=== PATIENT | male | born 1940 | race Caucasian/White ===

== ENCOUNTER → 2017-04-02 | Outpatient (CLI) | payer OTHER ==
[~2017-04-02] MED LIST: BAYER ASPIRIN325 M1 PO; ELIQUIS5 MG PO; GLUCOTROL PO; METOPROLOL TAR25 MG PO; NEXIUM PO; VALSARTAN-HCTZ1 EAC4 PO
--- NOTE | ~2017-04-02 | US24 ---
[facility] A Service of [facility] RADIOLOGY TEXT RESULTS PATIENT: KRISTIN DOMÍNGUEZ LOCATION: [facility] : 42 UNIT #: [id number] AGE: [address]: Aguilar Qurales MD SEX: M ORDER DR: [id number] [facility] [address] [place], [place] [address] [id number] O MR#: [id number] Acc #: [id number] NAME: KRISTIN DOMÍNGUEZ. : 1940 SEX: M STUDY DATE/TIME: 04/02/2017 8:51 UNIT: [facility] ROOM: STUDY DESCRIPTION: US Breast Unilateral Attending Physician: Aguilar Quarles M.D. Ordering Physician: Aguilar Quarles M.D. Primary Care Physician: Aguilar Quarles M.D. MEDICAL IMAGING REPORT This report is preliminary unless electronic signature is present EXAM Diagnostic right breast ultrasound 04/02/2017 HISTORY 76-year-old male with complaints of palpable abnormality and soreness in the right breast around the nipple for about 1 month. COMPARISON Bilateral diagnostic mammogram 04/02/2017. FINDINGS Targeted sonographic imaging was obtained of the right breast. Please refer to the diagnostic mammogram report from this same date for full description of mammographic and sonographic findings and recommendations. IMPRESSION BIRADS 2. Benign findings. Please refer to the diagnostic mammogram report from the same date for full description of mammographic and sonographic findings and recommendations. BIRADS: 2 Benign finding Dictated by... Patt Barber M.D. THIS IS AN ELECTRONICALLY VERIFIED REPORT Patt Barber M.D. at 04/05/2017 7:37 AM SUMAN/lazaro TD: 04/02/2017 10:29 JOB #: [id number] [facility] A Service [facility] RADIOLOGY TEXT RESULTS PATIENT: KRISTIN DOMÍNGUEZ LOCATION: [facility] : 42 UNIT #: [id number] AGE: [address]: Aguilar Quarles MD SEX: M ORDER DR: MEDICAL IMAGING REPORT Page 1 of 1 COPY
--- NOTE | ~2017-04-02 | MY26 ---
[facility] A Service of [facility] RADIOLOGY TEXT RESULTS PATIENT: KRISTIN DOMÍNGUEZ LOCATION: [facility] : 42 UNIT #: [id number] AGE: [address]: Aguilar Quarles MD SEX: M ORDER DR: [id number] [facility] [address] [place], [place] [address] [id number] O MR#: [id number] Acc #: [id number] NAME: KRISTIN DOMÍNGUEZ. : 1940 SEX: M STUDY DATE/TIME: 04/02/2017 8:26 UNIT: [facility] ROOM: STUDY DESCRIPTION: [facility] DIAGNOSTIC W/ CAD BILAT Attending Physician: Aguilar Quarles M.D. Ordering Physician: Aguilar Quarles M.D. Primary Care Physician: Aguilar Quarles M.D. MEDICAL IMAGING REPORT This report is preliminary unless electronic signature is present EXAM Bilateral digital diagnostic mammogram with CAD, 04/02/2017 HISTORY 76-year-old male with right breast palpable abnormality and soreness around the nipple for 1 month. COMPARISON None FINDINGS CC and MLO views were obtained of the right breast utilizing digital technique and reviewed with an FDA-approved CAD device. Additional CC view was obtained of the left breast for comparison purposes. The left breast is fatty replaced. The right breast demonstrates heterogeneously dense fibroglandular tissue in the anterior two-thirds of the subareolar region. No definite nodule, architectural distortion or clustered microcalcification is seen. No abnormal skin thickening or nipple retraction is identified. Targeted sonographic imaging was obtained of the right breast in the subareolar region. There is heterogeneous hypoechoic soft tissue with a somewhat flame-shaped or dendritic pattern lying just subjacent to the nipple at the patient's site of tenderness and palpable complaint. The mammographic and sonographic appearance conforms to a benign gynecomastia. No well-defined mass lesion is evident. IMPRESSION Right breast mammographic and sonographic features conform to the appearance of benign male gynecomastia. Any further management should be based upon clinical assessment. Findings and recommendations were discussed with the patient today in the radiology department. [facility] A Service of [facility] RADIOLOGY TEXT RESULTS PATIENT: KRISTIN DOMÍNGUEZ LOCATION: [facility] : 42 UNIT #: [id number] AGE: [address]: Aguilar Quarles MD SEX: M ORDER DR: Patients over the age of 40 are entered into a reminder system with target due date for the next mammogram. A result letter will also be sent to the patient. BIRADS: 2 Benign Finding Dictated by... Patt Barber M.D. THIS IS AN ELECTRONICALLY VERIFIED REPORT Patt Barber M.D. at 04/03/2017 8:31 AM Gloria TD: 04/02/2017 10:24 JOB #: [id number] MEDICAL IMAGING REPORT Page 1 of 1 COPY
== END | disposition home or self-care (01) ==
LOC: CMAM 08:00
DX: N62 Hypertrophy of breast (principal)
CPT/HCPCS: 76641; G0204